=== PATIENT | female | born 1970 | race Caucasian/White ===

== ENCOUNTER → 2017-06-10 | Outpatient (CLI) | payer OTHER ==
[~2017-06-10] MED LIST: CYAN1TAB24; D200CAP PO; PANT40TA3 PO; SUCR1TAB PO; VIIB10TA PO; protein PO
--- NOTE | 2017-06-11 21:05 | RADRPT ---
EXAM DATE/TIME: 06/10/2017 11:17 [facility] COMPARISON: No previous studies available for comparison. INDICATIONS : Bilateral drain placement. ORAL CONTRAST: No oral contrast ingested. RADIATION DOSE: 4.52 CTDIvol (mGy) MEDICAL HISTORY : Cholelithiasis. Gastroesophageal reflux disease. SURGICAL HISTORY : Gastric bypass. ENCOUNTER: Initial ACUITY: 1 day PAIN SCALE: 10/10 LOCATION: Bilateral Abdomen TECHNIQUE: Volumetric scanning of the abdomen and pelvis was performed. Using automated exposure control and ad justment of the mA and/or kV according to patient size, radiation dose was kept as low as reasonably achievable to obtain optimal diagnostic quality images. DICOM format image data is available electro nically for review and comparison. FINDINGS: Lung bases are clear. Osseous structures are intact. No pleural or pericardial effusions are seen. A percutaneous biliary drainage catheter is seen traversing the liver with distal tip in the second por tion of the duodenum. A 9.1 mm calculus is present within the left posterior aspect of urinary bladde r. Uterus and ovaries are unremarkable in noncontrast appearance. No evidence of bowel obstruction. T here is evidence of previous gastrojejunostomy with anastomotic suture in the level of the stomach an d proximal small bowel. The gallbladder is contracted. There is no biliary ductal dilatation. The lef t kidney is atrophic. Pancreas and adrenal glands are unremarkable. 2 mm nonobstructing right mid royce e renal calculus and punctate right lower pole renal calculus. CONCLUSION: Bladder calculus and right renal calculi. Atrophic left kidney. Biliary drainage catheter as above. Poli Hall MD on June 11, 2017 at 21:00 Board Certified Radiologist. This report was verified electronically.
== END ==
LOC: HRAD 10:45
PROVIDERS: ATTEND Family Medicine
DX: N20.0 Calculus of kidney (principal); N21.0 Calculus in bladder; Z46.6 Encounter for fitting and adjustment of urinary device
CPT/HCPCS: 74176

== ENCOUNTER 2017-06-17 05:58 | Day surgery (SDC) | payer OTHER ==
[2017-06-17] VITALS (7 sets, daily range): BP systolic 80–105; BP diastolic 54–69; PULSE 100–124; RESP 20; TEMP 97.9–98.3; O2SAT 96–100
[~2017-06-17] VITALS: Ht 167.6 cm; Wt 45.9 kg
[2017-06-17] MEDS ORDERED: IOHEXOL 350 MG/ML 50 ML BTL (for RAD DIAG) OTHER ONE (05:59)
[2017-06-17] MEDS ORDERED: MIDAZOLAM HCL 2 MG/2 ML VIAL ONE (08:42)
[2017-06-17] MEDS ORDERED: fentaNYL CITRATE 250 MCG/5 ML AMP ONE (08:42)
[2017-06-17] MEDS ORDERED: LEVOFLOXACIN 500 MG PREMIX INJ 100 ML IV ONE (08:42)
--- NOTE | 2017-06-17 09:13 | PD.RAD ---
Post Procedure Progress Note Pre Procedure Diagnosis: (1) Biliary calculus with obstruction without cholecystitis Post Procedure Diagnosis: (1) Biliary calculus with obstruction without cholecystitis Procedure Date: Jun 17, 2017 Supervising Radiologist: Torito Lucero Proceduralist/Assist: Sierra Mendoza, RT(R)(), Ramon Roth RT(R) Anesthesia: Local, Analgesia, Conscious Sedation Plan of Activity Patient to Unit: ROPU Patient Condition: Good See PACS Report for procedural detail/treatment Drainage Procedure Procedure 1 Imaging Guidance: Fluoroscopy Procedure Type: Biliary Drainage Procedure: Removal, Evaluation Findings: No residual stones. CBD patent to Torito Chase MD Jun 17, 2017 09:13
--- NOTE | 2017-06-17 17:17 | RADRPT ---
EXAM DATE/TIME: 06/17/2017 09:46 [facility] COMPARISON: No previous studies available for comparison. INDICATIONS : Patient presents with biliary drain for evaluation and possible removal. MEDICAL HISTORY : Cholelithiasis Esophageal dysphagia Asthma GERD SURGICAL HISTORY : Gastric bypass Breast augmentation ENCOUNTER: Subsequent ACUITY: >1 year PAIN SCORE: 0/10 LOCATION: N/A FLUORO TIME: 3.6 minutes IMAGE SERIES: 3 CONTRAST: 10 cc Omnipaque (iohexol) 350 MEDICATION(S): 1.) 150 mcg fentanyl (Sublimaze) IV 2.) 2 mg midazolam (Versed) IV PROCEDURE : 1. tube cholangiogram. 2. Removal of internal/external biliary drain. The risks, benefits and alternatives to the procedure were explained and verbal and written consent w as obtained. The site was prepped in sterile fashion. Full sterile technique was used, including ca p, mask, sterile gloves and gown and a large sterile sheet. Hand hygiene and 2% chlorhexidine and/or betadine/alcohol prep was utilized per protocol for cutaneous antisepsis. Indwelling internal/external drain was removed over a Glidewire. A 25 cm, 6 Indonesian side-port sheath w as then advanced over the wire and through the CBD. Wire was exchanged for an 018 Nitrex wire. Wire w as advanced into the small bowel. Side-port sheath was pulled back into the CBD and the stylette brittni sarath. Contrast injection through the side port showed homogeneous opacification of the intra-and extra hepatic biliary ducts. Free flow of the contrast material through the CBD into the bowel with some re flux into the pancreatic duct. No residual stones. Catheter was removed. CONCLUSION: 1. No residual stone disease. Intra-and extrahepatic ducts are patent with free flow into the small b owel. Small amount of reflux into the pancreatic duct. 2. Biliary drain was removed. Torito Lucero MD on June 17, 2017 at 17:12 Board Certified Radiologist. This report was verified electronically.
== END 2017-06-17 11:40 | disposition home or self-care (01) ==
LOC: HRIP 05:58 → HROP 05:58
DX: K80.20 Calculus of gallbladder without cholecystitis without obstruction (principal); K21.9 Gastro-esophageal reflux disease without esophagitis; J45.909 Unspecified asthma, uncomplicated; Z98.84 Bariatric surgery status
CPT/HCPCS: 47531; 47537; 99152; 99153; C1769; J1956; J2250; J3010; Q9967